=== PATIENT | female | born 1980 | race Caucasian/White ===

== ENCOUNTER 2017-10-29 14:48 | Emergency (ER) | END 2017-10-29 17:04 | disposition home or self-care (01) ==

== ENCOUNTER 2018-06-12 21:49 | Emergency (ER) | payer MEDICAID ==
[~2018-06-12] VITALS: Ht 167.6 cm; Wt 95.1 kg
[~2018-06-12 21:49] MED LIST: ALBU8.5H8 INH; AMOX1TAB10 PO; BEN50 PO; BENZ-6 PO; CEPH-443 PO; D-ME118S24 PO; D-ME473S2 PO; IBUP-1542 PO; IBUP800T48 PO; MED4DP PO
[2018-06-12 22:15] VITALS: Ht 167.6 cm; Wt 95.1 kg
[2018-06-13] MEDS ORDERED: BECL10.6 IH (01:14)
--- NOTE | 2018-06-13 01:15 | ERD ---
ER Documentation Chief Complaint Chief Complaint COUGH X 6 WEEKS ROS All systems reviewed and are negative except as per history of present illness. Medications Home Meds Active Scripts Beclomethasone Dipropionate (Qvar Redihaler (40 MCG)) 10.6 Gm Hfa.aeroba, 10.6 GM IH BID for cough/shortness of breath, #1 INH Prov:SANTIAGONELSON 06/13/18 Albuterol Sulfate* (Proair HFA*) 8.5 Gm Hfa.aer.ad, 2 PUFF INH Q4, #1 INHALER Prov:RAQUEL GUEVARA PA-C 06/04/18 Methylprednisolone* (Medrol* DOSE PACK) 4 Mg/Dose-Pack Tab.ds.pk, 4 MG PO . DIRECTED for 5 Days, PACKET Prov:RAQUEL GUEVARA PA-C 06/04/18 Benzonatate* (Tessalon Perle*) 100 Mg Capsule, 100 MG PO Q8H PRN for COUGH for 5 Days, CAP Prov:RAQUEL GUEVARA PA-C 06/04/18 Dextromethorphan Hb-Promethazine Hcl* (Promethazine DM* Syrup) 473 Ml Syrup, 5 ML PO Q6 PRN for COUGH for 5 Days, ML Prov:RAQUEL GUEVARA PA-C 06/04/18 Ibuprofen* (Motrin*) 600 Mg Tab, 600 MG PO Q6H PRN for PAIN AND OR ELEVATED TEMP, #30 TAB Prov:SANTIAGONELSON 05/26/18 D-Methorphan Hb/P-Epd HCl/Bpm (Alzvlyjydc-Vkyleoqqvrt-Kj Syr) 118 Ml Syrup, 5 ML PO Q4 PRN for COUGH, #1 BOTTLE Prov:JACKNELSON 05/26/18 Amoxicillin/Potassium Clav (Amox-Clav 875-125 mg Tablet) 875-125 mg Tab, 1 TAB PO BID for 7 Days, #14 TAB Prov:JACKNELSON SHAFFER 05/26/18 Diphenhydramine Hcl* (Benadryl*) 50 Mg Cap, 50 MG PO Q6 PRN for rash/ itch, #15 CAP Prov:CARMELA BATEMAN MD 10/29/17 Cephalexin* (Keflex*) 500 Mg Capsule, 500 MG PO QID for 7 Days, CAP Prov:CARMELA BATEMAN MD 10/29/17 Ibuprofen* (Motrin*) 800 Mg Tab, 800 MG PO Q6, #15 TAB Prov:CARMELA BATEMAN MD 10/29/17 Allergies Allergies: Coded Allergies: No Known Allergy (Verified , NONE, 10/29/17) PMhx/Soc Anesthesia Reaction: No Hx Neurological Disorder: No Hx Respiratory Disorders: No Hx Cardiac Disorders: No Hx Psychiatric Problems: No Hx Miscellaneous Medical Probl: No Hx Alcohol Use: No Hx Substance Use: No Hx Tobacco Use: No Smoking Status: Never smoker Physical Exam Vitals Vital Signs Date Temp Pulse Resp B/P (MAP) Pulse Ox O2 O2 Flow FiO2 Time Delivery Rate 06/12/18 98.7 108 16 159/95 100 22:15 (116) Physical Exam Const: No acute distress Head: Atraumatic Eyes: Normal Conjunctiva ENT: Normal External Ears, Nose and Mouth. Neck: Full range of motion. No meningismus. Resp: Clear to auscultation bilaterally Cardio: Regular rate and rhythm, no murmurs Abd: Soft, non tender, non distended. Normal bowel sounds Skin: No petechiae or rashes Back: No midline or flank tenderness Ext: No cyanosis, or edema Neur: Awake and alert Psych: Normal Mood and Affect Departure Diagnosis: Primary Impression: Cough Condition: Fair Patient Instructions: Cough, Chronic, Uncertain Cause, (Adult) Referrals: [facility] YOU HAVE RECEIVED A MEDICAL SCREENING EXAM AND THE RESULTS INDICATE THAT YOU DO NOT HAVE A CONDITION THAT REQUIRES URGENT TREATMENT IN THE EMERGENCY DEPARTMENT. FURTHER EVALUATION AND TREATMENT OF YOUR CONDITION CAN WAIT UNTIL YOU ARE SEEN IN YOUR DOCTORS OFFICE WITHIN THE NEXT 1-2 DAYS. IT IS YOUR RESPONSIBILITY TO MAKE AN APPOINTMENT FOR FOLOW-UP CARE. IF YOU HAVE A PRIMARY DOCTOR --you should call your primary doctor and schedule an appointment IF YOU DO NOT HAVE A PRIMARY DOCTOR YOU CAN CALL OUR PHYSICIAN REFERRAL HOTLINE AT IF YOU CAN NOT AFFORD TO SEE A PHYSICIAN YOU CAN CHOSE FROM THE FOLLOWING [facility] [address] [facility] [address] [facility] [address] [facility] [address] [facility]. [facility] [address] [facility]. [facility] [address] Additional Instructions: Call your primary care doctor TOMORROW for an appointment during the next 1-2 days.See the doctor sooner or return here if your condition worsens before your appointment time. Llame al doctor MAANA y sotero huan SAUL PARA DENTRO DE 1-2 ALY.Dgale a la secretaria que nosotros le instruimos hacer esta saul.Avise o llame si brown condicin se empeora antes de la saul. Regresa aqui si peor o no mejor. NELSON SANTIAGO DO Jun 13, 2018 01:15
[2018-06-13 01:30] VITALS: BP 140/90; PULSE 108; RESP 22
== END 2018-06-13 01:32 | disposition home or self-care (01) ==
LOC: FTE 21:49
DX: R05 Cough (principal)
CPT/HCPCS: 99283

== ENCOUNTER 2018-06-16 11:46 | Emergency (ER) | payer MEDICAID ==
[~2018-06-16] VITALS: Wt 93.3 kg
[~2018-06-16 11:46] MED LIST changes: +BECL10.6 IH
[2018-06-16] MEDS ORDERED: KETOROLAC 15 MG INJ IV STA (14:46)
--- NOTE | 2018-06-16 14:48 | ERD ---
ER Documentation Chief Complaint Chief Complaint R buttock abscess since Yuridia; no drainage. "hot and painful" ROS All systems reviewed and are negative except as per history of present illness. Medications Home Meds Active Scripts Beclomethasone Dipropionate (Qvar Redihaler (40 MCG)) 10.6 Gm Hfa.aeroba, 10.6 GM IH BID for cough/shortness of breath, #1 INH Prov:JACKNELSON 06/13/18 Albuterol Sulfate* (Proair HFA*) 8.5 Gm Hfa.aer.ad, 2 PUFF INH Q4, #1 INHALER Prov:RAQUEL GUEVARA PA-C 06/04/18 Methylprednisolone* (Medrol* DOSE PACK) 4 Mg/Dose-Pack Tab.ds.pk, 4 MG PO . DIRECTED for 5 Days, PACKET Prov:RAQUEL GUEVARA PA-C 06/04/18 Benzonatate* (Tessalon Perle*) 100 Mg Capsule, 100 MG PO Q8H PRN for COUGH for 5 Days, CAP Prov:RAQUEL GUEVARA PA-C 06/04/18 Dextromethorphan Hb-Promethazine Hcl* (Promethazine DM* Syrup) 473 Ml Syrup, 5 ML PO Q6 PRN for COUGH for 5 Days, ML Prov:RAQUEL GUEVARA PA-C 06/04/18 Ibuprofen* (Motrin*) 600 Mg Tab, 600 MG PO Q6H PRN for PAIN AND OR ELEVATED TEMP, #30 TAB Prov:JACKNELSON 05/26/18 D-Methorphan Hb/P-Epd HCl/Bpm (Ireeoyoclo-Dlotlliwzrj-Ad Syr) 118 Ml Syrup, 5 ML PO Q4 PRN for COUGH, #1 BOTTLE Prov:JACKNELSON 05/26/18 Amoxicillin/Potassium Clav (Amox-Clav 875-125 mg Tablet) 875-125 mg Tab, 1 TAB PO BID for 7 Days, #14 TAB Prov:NELSON SANTIAGO DO 05/26/18 Diphenhydramine Hcl* (Benadryl*) 50 Mg Cap, 50 MG PO Q6 PRN for rash/ itch, #15 CAP Prov:CARMELA BATEMAN MD 10/29/17 Cephalexin* (Keflex*) 500 Mg Capsule, 500 MG PO QID for 7 Days, CAP Prov:CARMELA BATEMAN MD 10/29/17 Ibuprofen* (Motrin*) 800 Mg Tab, 800 MG PO Q6, #15 TAB Prov:CARMELA BATEMAN MD 10/29/17 Allergies Allergies: Coded Allergies: No Known Allergy (Verified , NONE, 06/16/18) PMhx/Soc Anesthesia Reaction: No Hx Neurological Disorder: No Hx Respiratory Disorders: No Hx Cardiac Disorders: No Hx Psychiatric Problems: No Hx Miscellaneous Medical Probl: No Hx Alcohol Use: No Hx Substance Use: No Hx Tobacco Use: No Physical Exam Vitals Vital Signs Date Temp Pulse Resp B/P (MAP) Pulse Ox O2 O2 Flow FiO2 Time Delivery Rate 06/16/18 101.2 112 22 145/87 98 13:05 (106) Physical Exam Const: No acute distress Head: Atraumatic Eyes: Normal Conjunctiva ENT: Normal External Ears, Nose and Mouth. Neck: Full range of motion. No meningismus. Resp: Clear to auscultation bilaterally Cardio: Regular rate and rhythm, no murmurs Abd: Soft, non tender, non distended. Normal bowel sounds Skin: No petechiae or rashes Back: No midline or flank tenderness Ext: No cyanosis, or edema Neur: Awake and alert Psych: Normal Mood and Affect Results 24 hrs Laboratory Tests Test 06/16/18 15:13 POC Beta HCG, Qualitative NEGATIVE Current Medications Medications Dose Sig/Carisa Start Time Status Last (Trade) Ordered Route PRN Stop Time Admin Dose Reason Admin Sodium 1,000 ml @ Q1H ONCE 06/16/18 DC 06/16/18 Chloride 1,000 mls/hr IV 15:00 15:16 06/16/18 15:59 Ketorolac 15 mg ONCE STAT 06/16/18 DC 06/16/18 Tromethamine IV 14:46 15:16 (Toradol) 06/16/18 14:51 Ceftriaxone 50 ml @ ONCE ONCE 06/16/18 DC 06/16/18 Sodium 100 mls/hr IVPB 15:00 15:15 06/16/18 15:29 650 mg ONCE ONCE 06/16/18 DC 06/16/18 Acetaminophen PO 15:00 15:16 (Tylenol 06/16/18 15:01 Tab) Procedures/MDM Vital signs stable. Differential diagnosis considered include but not limited to: Cellulitis, abscess, lipoma, neoplasm. Low suspicion for acute systemic infection. Physical examination and clinical presentation consistent most likely with skin abscess. During the ED course the patient remained stable, no new complaints. The patient received treatment with incision and drainage of the area presenting overall improvement of the symptoms. Incision and drainage: Informed consent obtained, risk and benefits discussed with patient. Indication: Left perianal abscess Area cleaned and sterilized with chlorhexidine solution, 2 mL of lidocaine without epi was infiltrated in the area of the incision. 5 mm incision was made with 11 blade scalpel abscess was drained with breaking up loculation with a hemostat. 1/4 packing was placed through the incision in the abscess cavity. The patient tolerated well the procedure without complications. Results and clinical impression discussed with the patient who agrees with management. The patient is stable to be treated outpatient and will be discharged home, some side effects of prescribed medications (headache, rash, nausea, vomiting, diarrhea, drowsiness, habituation, bleeding, hypertension, interactions with other medications) were reviewed. The patient was instructed to follow up with the primary care provider in the next 48h. If symptoms persist, worsen or new symptoms develop, then patient should return to the ED immediately. Instructions explained and given directly by me to the patient [in Yakut] with acknowledgment and demonstrated understanding. Disclaimer: Inadvertent spelling and grammatical errors are likely due to EHR/dictation software use and do not reflect on the overall quality of patient care. Also, please note that the electronic time recorded on this note does not necessarily reflect the actual time of the patient encounter. Departure Diagnosis: Primary Impression: Perianal abscess Condition: Stable Additional Instructions: Muchas keaton por [facility] para brown servicio. Esperamos que en brown visita a la lucie de emergencia brown problema medico haya sido solucionado y que se sienta mucho mejor. Para estar seguros que brown mejoria sigue en proceso, le pedimos el favor de hacer huan dalia de seguimiento medico con brown doctor primario en los proximos 2-4 quiñones. Lleve con usted estos documentos y las medicinas recetadas. Si angelica sintomas empeoran, NO SE ESPERE, por favor regrese a lucie de emergencia INMEDIATAMENTE. En julián que usted no tenga un mdico de atencin primaria: Llame al mdico o clnica comunitaria de referencia que aparece abajo josef las horas de consultorio para hacer huan dalia para que le vean. CLINICAS: [facility] [phone] [address] [facility] [phone] [address] [facility] [phone] [address] [facility]. [place] [id number] [phone] [facility]. [place] [id number] [phone] [facility]. [phone] ANAND PEREZ MD Jun 16, 2018 14:48
[2018-06-16] MEDS ORDERED: SOD CHLORIDE 0.9% 1,000 ML IV ONE (15:00)
[2018-06-16] MEDS ORDERED: CEFTRIAXONE 1 GM/50 ML (PMX) 50 ML IVPB ONE (15:00)
[2018-06-16] MEDS ORDERED: ACETAMINOPHEN 325 MG TAB PO ONE (15:00)
[2018-06-16] MEDS ORDERED: HYDR-4011 PO (16:06)
[2018-06-16] MEDS ORDERED: SULF1TAB31 PO (16:06)
[2018-06-16] MEDS ORDERED: IBUP-1561 PO (16:06)
[2018-06-16] MEDS ORDERED: CEPH-443 PO (16:06)
[2018-06-16 16:21] VITALS: BP 104/55; PULSE 105; RESP 17
== END 2018-06-16 16:23 | disposition home or self-care (01) ==
LOC: FTE 11:46
DX: K61.0 Anal abscess (principal)
CPT/HCPCS: 46050; 81025; 96365; 96375; J0696; J1885; Z7502; Z7610